=== PATIENT | female | born 2005 | race Two or more races ===

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

== ENCOUNTER → 2024-02-25 | Outpatient (CLI) | payer OTHER ==
[2024-02-25 15:34] LABS: BASOPHILS ABSOLUTE AUTO 0.03 K/mm3 (0.00-0.23); BASOPHILS PERCENT AUTO 0 % (0-2); EOSINOPHILS ABSOLUTE AUTO 0.11 K/mm3 (0.00-0.68); EOSINOPHILS PERCENT AUTO 2 % (0-6); Hematocrit 41.6 % (33.0-51.0); IMMATURE GRAN ABSOLUTE AUTO 0.02 K/mm3 (0.00-0.10); IMMATURE GRAN PERCENT AUTO 0 % (0-1); LYMPHOCYTES ABSOLUTE AUTO 1.98 K/mm3 (0.84-5.20); LYMPHOCYTES PERCENT AUTO 28 % (21-46); MONOCYTES PERCENT AUTO 6 % (4-13); Mean Corpuscular HGB 29.9 pg (26.0-34.0); Mean Corpuscular HGB Conc 33.7 g/dL (31.5-36.5); Mean Corpuscular Volume 89 fL (80-100); Mean Platelet Volume 10.5 fL (9.1-12.4); NEUTROPHILS ABSOLUTE AUTO 4.61 K/mm3 (1.96-9.15); NEUTROPHILS PERCENT AUTO 65 % (41-73); Platelet Count 319 K/mm3 (150-400); RDW Standard Deviation 42.5 fL (35.1-46.3); Red Blood Cell Count 4.68 M/mm3 (3.80-5.20); White Blood Cell Count 7.15 K/mm3 (4.00-11.30)
[2024-02-25 16:28] LABS: Alanine Aminotransfer (ALT/SGP 28 U/L (12-78); Alk Phos 133 U/L (45-116); Anion Gap 11 mmol/L (3-11); Aspartate Aminotrans (AST/SGOT 15 U/L (12-37); Bilirubin, Total 0.4 mg/dL (0.1-1.0); Blood Urea Nitrogen 11 mg/dL (8-21); Bun/Creatinine Ratio 15.8 (12.0-20.0); CHOL/HDL RATIO 3.9; CO2, Blood 22 mmol/L (21-32); Calcium, Blood 9.3 mg/dL (8.5-10.1); Chloride, Blood 110 mmol/L (98-108); Cholesterol 216 mg/dL (50-200); Ferritin, Serum 16 ng/mL (8-252); Globulin, Blood 4.2 g/dL (2.2-4.0); Glomerular Filtration Rate 128 (60-); Glucose, Blood 110 mg/dL (70-99); HDL Cholesterol 56 mg/dL (>39); Iron Serum 82 ug/dL (50-170); LDL/HDL RATIO 2.5; Low Density Lipoprotein Chol 137 mg/dL (0-110); Potassium, Blood 3.6 mmol/L (3.5-5.5); Sodium, Blood 139 mmol/L (136-145); Thyroid Stimulating Hormone 0.798 uIU/mL (0.360-4.800); Total Iron Binding Capacity 431 ug/dL (250-450); Total Protein, Blood 8.2 g/dL (6.4-8.2); Triglycerides 113 mg/dL (30-140); Very Low Density Lipoprot Chol 22 mg/dL (6-28)
== END ==
LOC: LAB SHORT 14:42 → LAB 14:42
PROVIDERS: General Practice
DX: Z13.220 Encounter for screening for lipoid disorders (principal); E55.9 Vitamin D deficiency, unspecified; E66.9 Obesity, unspecified; R53.83 Other fatigue
CPT/HCPCS: 80053; 80061; 82306; 82728; 83540; 83550; 84443; 85025